=== PATIENT | male | born 1985 | race Caucasian/White ===

== ENCOUNTER 2019-06-05 15:55 | Emergency (ER) | payer BC ==
[~2019-06-05] VITALS: Ht 172.7 cm; Wt 68.2 kg
[2019-06-05 16:29] LABS: BASO % 0.7 % (0.0-2.0); EOS % 0.2 % (0-4.0); GRAN # 3.2 (1.4-6.5); GRAN % 76.6 % (42.2-75.2); HEMATOCRIT 39.8 % (42.0-52.0); HEMOGLOBIN 13.3 g/dl (13.5-18.0); LYMPH # 0.5 (1.2-3.4); LYMPH % 12.6 % (20.0-51.0); MEAN CELL VOLUME 99 fl (80.0-100.0); MEAN CORPUSCULAR HEMOGLOBIN 33 pg (27.0-31.0); MEAN CORPUSCULAR HGB CONC 33 g/dl (33.0-37.0); MEAN PLATELET VOLUME 11.3 fl (7.4-10.4); MONO # 0.4 (0.1-0.6); MONO % 9.7 % (1.7-9.3); PLATELET COUNT 59 K/mm3 (130-400); RED BLOOD COUNT 4.04 M/mm3 (4.20-5.60)
[2019-06-05 16:51] LABS: ALBUMIN 4.9 gm/dL (3.5-5.0); BILIRUBIN,TOTAL 1.2 mg/dL (0.0-1.0); CREATININE, serum 0.74 (0.66-1.25); POTASSIUM 3.9 mmol/L (3.4-5.0); TOTAL PROTEIN 7.8 gm/dL (6.4-8.2)
[2019-06-05 16:53] LABS: TRICYCLIC ANTIDEPRESS URINE NEGATIVE
[2019-06-05 17:06] LABS: PROLACTIN 41.1 ng/mL (3.7-17.9)
[2019-06-05 18:13] LABS: INR 0.9 (0.8-3.0); PROTHROMBIN TIME 10.7 SECONDS (9.7-12.8)
[2019-06-05 21:00] VITALS: TEMP 98.6
[2019-06-05 22:00] VITALS: BP 131/82; PULSE 92
== END 2019-06-05 22:25 | disposition other institution (70) ==
LOC: COL.ER 15:55
PROVIDERS: Emergency Medicine
DX: S06.309A Unspecified focal traumatic brain injury with loss of consciousness of unspecified duration, initial encounter (principal); G40.909 Epilepsy, unspecified, not intractable, without status epilepticus; W19.XXXA Unspecified fall, initial encounter; W22.8XXA Striking against or struck by other objects, initial encounter
CPT/HCPCS: J1953; J2060; J7030

== ENCOUNTER 2022-05-29 13:28 | Emergency (ER) | payer SELFPAY ==
[~2022-05-29] VITALS: Ht 172.7 cm; Wt 70.5 kg
[2022-05-29 13:50] VITALS: TEMP 98.4
[2022-05-29 15:23] LABS: ALANINE AMINOTRANSFERASE 113 U/L (0-55); ALBUMIN 4.1 gm/dL (3.5-5.0); ALKALINE PHOSPHATASE 120 U/L (40-150); ANION GAP 22 mmol/L (7-16); AST,SGOT 181 U/L (5-34); BILIRUBIN,TOTAL 0.9 mg/dL (0.2-1.2); BLOOD UREA NITROGEN 12 mg/dL (9-21); CARBON DIOXIDE 15 mmol/L (22-29); CHLORIDE 97 mmol/L (98-107); CREATININE, serum 0.88 mg/dL (0.72-1.25); GLUCOSE 66 mg/dL (70-99); POTASSIUM 3.9 mmol/L (3.5-4.5); SODIUM 134 mmol/L (136-145); TOTAL PROTEIN 7.4 gm/dL (6.2-8.1)
[2022-05-29 15:24] LABS: ALCOHOL(ethanol),MEDICAL < 10 mg/dL (0-10)
[2022-05-29 15:35] LABS: BASO % 0.5 % (0.0-2.0); EOS % 0.2 % (0.0-4.0); GRAN # 4.8 K/mm3 (1.4-6.5); GRAN % 79.6 % (42.2-75.2); HEMOGLOBIN 11.9 g/dl (13.5-18.0); LYMPH # 0.5 K/mm3 (1.2-3.4); LYMPH % 8.7 % (20.0-51.0); MEAN CELL VOLUME 100 fl (80.0-100.0); MEAN CORPUSCULAR HEMOGLOBIN 34 pg (27-31); MEAN CORPUSCULAR HGB CONC 34 g/dl (33.0-37.0); MEAN PLATELET VOLUME 10.8 fl (7.4-10.4); MONO # 0.6 K/mm3 (0.1-0.6); MONO % 10.2 % (1.7-9.3); RED BLOOD COUNT 3.51 M/mm3 (4.20-5.60); REDCELL DISTRIBUTION WIDTH-CV 13.1 % (11.5-14.5)
[2022-05-29 15:37] LABS: PLATELET COUNT 46 K/mm3 (130-400)
[2022-05-29 17:25] LABS: TRICYCLIC ANTIDEPRESS URINE NEGATIVE
[2022-05-29 18:48] VITALS: BP 114/77; PULSE 70
== END 2022-05-29 19:08 | disposition short-term general hospital (02) ==
LOC: COL.ER 13:28
PROVIDERS: Personal Emergency Response Attendant
DX: S12.200A Unspecified displaced fracture of third cervical vertebra, initial encounter for closed fracture (principal); S12.600A Unspecified displaced fracture of seventh cervical vertebra, initial encounter for closed fracture; F10.239 Alcohol dependence with withdrawal, unspecified; F17.210 Nicotine dependence, cigarettes, uncomplicated; Z28.310 Unvaccinated for COVID-19; W18.30XA Fall on same level, unspecified, initial encounter
CPT/HCPCS: J1953; J2060; J3411; J7030; J7121